=== PATIENT | female | born 1980 | race Hispanic/Latino ===

== ENCOUNTER 2021-03-29 21:51 | Emergency (ER) | payer BC ==
[~2021-03-29] VITALS: Ht 152.4 cm; Wt 104.3 kg
[2021-03-29] MEDS ORDERED: NEOMYCIN/POLYMYXIN/HC OTIC SUSP 10ML BOTTLE ONE (22:22)
[2021-03-29] MEDS ORDERED: ACETAMINOPHEN WITH CODEINE 1 TAB TAB ONE (22:22)
[2021-03-29] MEDS ORDERED: IBUP-1552 PO (22:29)
[2021-03-29] MEDS ORDERED: NEOMYCIN/POLYMYXIN/HC OTIC SUSP 10ML BOTTLE AS SCH (22:30)
[2021-03-29] MEDS ORDERED: ACETAMINOPHEN WITH CODEINE 1 TAB TAB PO ONE (22:30)
[2021-03-29 23:13] VITALS: BP 146/70
== END 2021-03-29 23:17 | disposition home or self-care (01) ==
LOC: EDH 21:51
DX: H92.02 Otalgia, left ear (principal); Z79.899 Other long term (current) drug therapy